=== PATIENT | female | born 1955 | race African-American/Black ===

== ENCOUNTER → 2017-03-23 | Day surgery (SDC) | payer MEDICAID ==
[~2017-03-23] VITALS: Ht 152.4 cm; Wt 83.0 kg
[~2017-03-23] MED LIST: ACET-3161 GT; ASPI-1035 PO; BENA20TA3 PO; BUPR150T9 PO; CYCL5TAB PO; DICL50TA9 PO; FERR-63 PO; HYDR25TA PO; OMEP20CA10 PO; SIMV20TA6 PO; TRIA15OI8 TP; Vitamin C PO; vitamin c
[2017-03-23 08:58] LABS: HEMATOCRIT 25.3 % (36.0-48.0); HEMOGLOBIN 7.8 g/dL (12.0-16.0); MEAN CORPUSCULAR HEMOGLOBIN 25.4 pg (28.0-32.0); MEAN CORPUSCULAR HGB CONC 30.7 g/dL (31.0-37.0); MEAN CORPUSCULAR VOLUME 82.9 fL (81.0-99.0); PLATELET 286 x1000/uL (130-400); RED BLOOD CELL COUNT 3.06 mill/uL (4.2-5.4); RED CELL DISTRIBUTION WIDTH 16.7 % (11.6-14.6)
[2017-03-23 09:03] LABS: CHLORIDE 108 mEq/L (98-107); INDEX HEMOLYSI 1 (1-3); INDEX ICTERIC 1 (1-4); INDEX LIPEMIC 1 (1-3)
[2017-03-23 09:09] LABS: ANION GAP 11; CARBON DIOXIDE 29 mEq/L (21-32); UREA NITROGEN BLOOD 12 mg/dL (7-21); eGFR > 60 mL/min (>60)
== END | disposition home or self-care (01) ==
LOC: CCL 08:21
PROVIDERS: ATTEND Internal Medicine Cardiovascular Disease
DX: R94.39 Abnormal result of other cardiovascular function study (principal); I10 Essential (primary) hypertension; E78.5 Hyperlipidemia, unspecified; D50.9 Iron deficiency anemia, unspecified; E66.9 Obesity, unspecified; Z53.9 Procedure and treatment not carried out, unspecified reason
CPT/HCPCS: 36415; 80048; 85027

== ENCOUNTER → 2018-01-15 | Day surgery (SDC) | payer MEDICAID ==
[~2018-01-15] MED LIST changes: -ACET-3161 GT; +ACET-3161 PO; +ALBU18HF2 IH; +ALBU4TAB6 PO; -ASPI-1035 PO; +ASPI-1159 PO
== END ==
LOC: CCL 11:12
PROVIDERS: ATTEND Internal Medicine Cardiovascular Disease
DX: R94.39 Abnormal result of other cardiovascular function study (principal); Z53.9 Procedure and treatment not carried out, unspecified reason

== ENCOUNTER 2018-01-18 08:15 | Day surgery (SDC) | payer MEDICAID ==
[~2018-01-18] VITALS: Ht 152.4 cm; Wt 84.4 kg
[~2018-01-18 08:15] MED LIST changes: -ALBU18HF2 IH; -ALBU4TAB6 PO
[2018-01-18 09:13] LABS: BASOPHILS % 1.6 % (0.0-2.0); EOSINOPHILS % 0.7 % (0.0-5.0); HEMOGLOBIN. 10.1 g/dL (12.0-16.0); LYMPHOCYTES % 45.9 % (20.0-50.0); MEAN CORPUSCULAR HEMOGLOBIN 21.9 pg (28.0-32.0); MEAN CORPUSCULAR VOLUME 73.4 fL (81.0-99.0); MEAN PLATELET VOLUME 7.4 fl (7.4-10.4); MONOCYTES % 8.5 % (2.0-8.0); NEUTROPHILS % 43.3 % (40.0-76.0); PLATELET 308 x1000/uL (130-400); RED BLOOD CELL COUNT 4.63 mill/uL (4.2-5.4); RED CELL DISTRIBUTION WIDTH 17.6 % (11.6-14.6)
[2018-01-18 09:21] LABS: PARTIAL THROMBOPLASTIN TIME 28.3 sec (23.4-31.0); PROTHROMBIN TIME 10.6 sec (9.4-11.6)
[2018-01-18 09:22] LABS: CHLORIDE 108 mEq/L (98-107)
[2018-01-18] MEDS ORDERED: ALBU4TAB6 PO (09:44)
[2018-01-18] MEDS ORDERED: ALBU18HF2 IH (09:44)
[2018-01-18] MEDS ORDERED: NICARDIPINE 100MCG/ML 10ML VIAL (CATH LAB) IV ONE (10:27)
[2018-01-18] MEDS ORDERED: HEPARIN SODIUM 1,000 UNIT/1ML VIAL IV ONE (10:27)
[2018-01-18] MEDS ORDERED: NITROGLYCERIN 50MCG/ML 10ML VIAL (CATH LAB) IV ONE (10:27)
[2018-01-18] MEDS ORDERED: LIDOCAINE HCL/PF 1% 10 MG/ML 5ML VIAL ONE (10:34)
[2018-01-18] MEDS ORDERED: IOHEXOL-300 100 ML BOTTLE ONE (10:34)
[2018-01-18] MEDS ORDERED: MIDAZOLAM HCL 2 MG/2 ML VIAL ONE (10:48)
[2018-01-18] MEDS ORDERED: FENTANYL CITRATE/PF 50MCG/ML 2ML VIAL ONE (10:48)
[2018-01-18] MEDS ORDERED: ACETAMINOPHEN 325MG TABLET PO PRN (11:45)
[2018-01-18] MEDS ORDERED: ONDANSETRON HCL 4MG/2ML VIAL IV PRN (11:45)
[2018-01-18] MEDS ORDERED: MORPHINE SULFATE 2 MG/ML CPJ (NOT FOR IM USE) IV PRN (11:45)
== END 2018-01-18 14:50 | disposition home or self-care (01) ==
LOC: CCL 08:15
PROVIDERS: ATTEND Internal Medicine Cardiovascular Disease
DX: I25.10 Atherosclerotic heart disease of native coronary artery without angina pectoris (principal); Z88.0 Allergy status to penicillin; Z90.89 Acquired absence of other organs; Z98.890 Other specified postprocedural states
CPT/HCPCS: 36415; 80048; 85025; 85610; 85730; 93458; C1769; C1887; C1893; J1644; J2250; J3010; J3490; Q9967